=== PATIENT | female | born 1990 | race Caucasian/White ===

== ENCOUNTER 2017-11-11 05:56 | Inpatient (IN) ==
[~2017-11-11 05:56] MED LIST: CITRIC ACID/SODIUM CITRATE 30 ML CUP PO ONE; CefOXitin Inj 2 GM in Sodium Chloride 0.9% 100 ML IV ONE; Famotidine Inj 20 MG in Normal Saline Flush 10 ML IVP ONE; LIDOCAINE HCL 2 % 10 ML JELLY URO-JECT TOPICAL PRN; LIDOCAINE W/ SODIUM BICARB 0.5 ML SYR SUBD PRN; Lactated Ringers 1,000 ML PRIMARY IV ONE; Metoclopramide Inj 10 MG/2 ML VIAL IV ONE; NORMAL SALINE 10 ML SYRINGE FLUSH IVP PRN
[2017-11-11] MEDS ORDERED: Lactated Ringers-OB Dept 1,000 ML ONE (05:59)
[2017-11-11] MEDS ORDERED: Lactated Ringers 1,000 ML PRIMARY IV SCH (06:00)
[2017-11-11] MEDS ORDERED: Oxytocin 20 Units + LR 20 UNIT/1,000 ML BAG IV SCH ×2 (06:00→09:06)
[2017-11-11 06:58] LABS: Hematocrit [HCT] 34.2 % (37.0-47.0); Hemoglobin [HGB] 11.5 g/dL (12.0-16.0); MEAN CORPUSCULAR HEMOGLOBIN 28.2 PG (27-31); MEAN CORPUSCULAR HGB CONC 33.6 g/dL (33-37); MEAN CORPUSCULAR VOLUME 83.8 FL (81-99); MEAN PLATELET VOLUME 11.7 FL (7.4-12.2); RED BLOOD COUNT 4.08 10^6/uL (4.20-5.40)
[2017-11-11] MEDS ORDERED: OXYTOCIN 10 UNIT/1 ML ONE (07:15)
[2017-11-11] MEDS ORDERED: ePHEDrine Inj 50 MG/ML AMP ONE (07:15)
[2017-11-11] MEDS ORDERED: Lactated Ringers 1,000 ML PRIMARY IV ONE (07:21)
--- NOTE | 2017-11-11 08:43 | CRNA.PROCE ---
Central Neuraxis Block Placemt - - Safety Measures: Time Out Taken, Site Verified - - Type of Block: Subarachnoid Reason for Block: Surgical Moniters Used During Block: EKG, SPO2, NIBP Positioning: Sitting Skin Prep Used: Betadine Draped: Yes Introducer User: 23 Gauge Spinal Needle Used: 25 Juliana 80 mm Local Anesthetic - Enter Amount Used in Comment Field: 0.75 % Bupivacaine with Dextrose (ml): Yes (15mg) Anesthesia Time - Other Weight: 92.079 kg Height: 5 ft 3 in Body Mass Index (BMI): 35.9
[2017-11-11] MEDS ORDERED: fentaNYL Inj 100 MCG/2 ML VIAL IVP PRN (08:45)
[2017-11-11] MEDS ORDERED: LIDOCAINE W/ SODIUM BICARB 0.5 ML SYR SUBD PRN (08:45)
[2017-11-11] MEDS ORDERED: HYDROmorphone 2 MG/1 ML IVP PRN (08:45)
[2017-11-11] MEDS ORDERED: NORMAL SALINE 10 ML SYRINGE FLUSH IVP PRN (08:45)
[2017-11-11] MEDS ORDERED: ONDANSETRON 4 MG/2 ML VIAL IVP PRN ×2 (08:45→09:06)
--- NOTE | 2017-11-11 08:45 | CRNA.PROGR ---
Anesthesia Time - - Start date: 11/11/17 End date: 11/11/17 - Procedure/Recovery Time Anesthesia : Time In: 07:24 Anesthesia : Time Out: 08:31 Anesthesia : Total Time: 67 - Total Anesthesia Time Total Anesthesia Time (minutes): 67 - Other Weight: 92.079 kg Height: 5 ft 3 in Body Mass Index (BMI): 35.9 Physical Status: P2 Anesthesia Type: Spinal Block Obstetrics: C/S anesthesia only (Primary Csection)
--- NOTE | 2017-11-11 08:45 | CRNA.PROGR ---
Anesthesia Recovery Phase I - Post Anesthesia Evaluation Patient's Condition on Arrival in Phase I: Stable Pain Level: 0
[2017-11-11] MEDS ORDERED: Famotidine Inj 20 MG in Normal Saline Flush 10 ML IVP PRN (09:06)
[2017-11-11] MEDS ORDERED: diphenhydrAMINE 25 MG CAPSULE PO PRN (09:06)
[2017-11-11] MEDS ORDERED: diphenhydrAMINE 50 MG/1 ML VIAL IV PRN (09:06)
[2017-11-11] MEDS ORDERED: DIPH,PERTUSS,TET(ADACEL) VAC/PF 0.5 ML (Tdap) IM ONE (09:06)
[2017-11-11] MEDS ORDERED: CALCIUM CARBONATE 500 MG (TUMS) CHEWABLE TABLET PO PRN (09:06)
[2017-11-11] MEDS ORDERED: HYDROmorphone 2 MG/1 ML IV PRN (09:06)
[2017-11-11] MEDS ORDERED: Nalbuphine Inj 20 MG/ML Ampule IVP PRN (09:06)
[2017-11-11] MEDS ORDERED: Naloxone Inj 0.01 MG, Sodium Chloride 0.9% vial 1 ML IVP PRN ×2 (09:06)
[2017-11-11] MEDS ORDERED: LANOLIN HPA 40 GM TUBE TOPICAL PRN (09:06)
[2017-11-11] MEDS: KETOROLAC 15 MG/1 ML VIAL IVP SCH ×3 (10:00→23:32)
[2017-11-11] MEDS: oxyCODONE-ACETAMINOPHEN 5-325 TAB PO PRN ×3 (10:30→21:25)
[2017-11-11] MEDS: D5-LR 1,000 ML PRIMARY IV SCH ×2 (14:56→18:58)
[2017-11-11] MEDS: NORMAL SALINE 10 ML SYRINGE FLUSH IVP PRN ×2 (16:16→23:33)
--- NOTE | 2017-11-11 16:59 | OB.OP.NOTE ---
Operative Report - - Surgeon: Riya Castillo MD Prop Setter: Kwan Selby MD, Other (Hilario Henry PA-C and MS3) Anesthesia Type: Regional Anesthesia Provider: Willam Emmanuel CRNA Surgery Date: 11/11/17 Preoperative Diagnosis: Term IUP, contracted pelvis, suspected macrosomic Postoperative Diagnosis: same, delivered Procedure: Primary section Complications: none Estimated Blood Loss (mL): 800 Urine Output (mL): 30 Fluids: 1800 LR Indications: Pt is a 27 yo G1 now P1 at 40 weeks gestation who has a very contracted pelvis. Her baby is also suspected to be greater than 8#8oz per recent u/s data. She has had no signs of labor up to this point. She was offered a primary section and readily accepted this. Findings: viable male infant, cephalic presentation, clear amniotic fluid. Description of Procedure: The patient was taken to the operating room where spinal anesthesia was found to be adequate. She was then prepared and draped in the normal sterile fashion in the dorsal supine position with a leftward tilt. A Pfannenstiel skin incision was then made with the scalpel and carried through to the underlying layer of fascia with the Bovie. The fascia was incised in the midline and the incision extended laterally with the Bovie. The superior aspect of the fascial incision was then grasped with Zen clamps, elevated, and the underlying rectus muscles dissected off bluntly. Attention was then turned to the inferior aspect of this incision which, in a similar fashion, was grasped with Zen clamps and the rectus muscles dissected off both bluntly and with the Bovie. The rectus muscles were then in the midline, and the peritoneum identified, and entered digitally. The peritoneal incision was then extended superiorly and inferiorly with good visualization of the bladder. The Ryder retractor was then inserted and the vesicouterine peritoneum was identified. The lower uterine segment was incised in the transverse fashion with the scalpel. The uterine incision was then extended laterally in a blunt fashion. The infant's head was delivered atraumatically. The nose and mouth were suctioned with the bulb suction and the cord clamped and cut. The was handed off to the awaiting nurse. Cord gases and cord blood were sent for analysis. The placenta was then removed manually; the uterus exteriorized, and cleared of all clots and debris. The uterine incision was repaired with 0 Vicryl in a running, locked fashion. A second layer of the same suture was used to obtain excellent hemostasis. The peritoneal cavity was then copiously irrigated with warm saline. The uterus was returned to the abdomen. The paracolic gutters were copiously irrigated with warm saline and a second look at the uterine incision continued to reveal excellent hemostasis. The peritoneum was closed with 3-0 Vicryl. The fascia was reapproximated with 0 vicryl in a running fashion. The subcutaneous space was irrigated with copiously with warm saline and the closed first with 3-0 Vicryl and then more superficially with Insorb absorbable sutures. The skin was reapproximated with Steri-Strips and a Silverlon dressing applied. Fundal massage was completed with no clots in vaginal vault. The patient tolerated the procedure well. Sponge, lap, and needle counts were correct x2. Ancef was given preoperatively less than one hour prior to incision time. The patient was taken to the recovery room in stable condition.
[2017-11-12] MEDS: KETOROLAC 15 MG/1 ML VIAL IVP SCH ×2 (04:59→11:05)
[2017-11-12] MEDS: NORMAL SALINE 10 ML SYRINGE FLUSH IVP PRN ×2 (05:00→11:05)
[2017-11-12 05:23] LABS: Hematocrit [HCT] 27.1 % (37.0-47.0); Hemoglobin [HGB] 8.9 g/dL (12.0-16.0); MEAN CORPUSCULAR HEMOGLOBIN 28.3 PG (27-31); MEAN CORPUSCULAR HGB CONC 32.8 g/dL (33-37); MEAN PLATELET VOLUME 10.9 FL (7.4-12.2); RED BLOOD COUNT 3.15 10^6/uL (4.20-5.40)
[2017-11-12] MEDS: oxyCODONE-ACETAMINOPHEN 5-325 TAB PO PRN ×4 (07:12→20:47)
[2017-11-12] MEDS: Prenatal Multivitamin Tab 1 TAB TAB PO SCH (09:32)
[2017-11-12] MEDS: Senna/Docusate Tab 1 TAB TAB PO SCH ×2 (09:32→20:47)
[2017-11-12] MEDS ORDERED: SIMETHICONE 80 MG TABLET PO PRN (10:53)
[2017-11-12] MEDS: FERROUS GLUCONATE 324 MG TABLET PO SCH ×2 (15:46→20:47)
[2017-11-12] MEDS: IBUPROFEN 800 MG TABLET PO PRN (17:15)
[2017-11-12] MEDS ORDERED: DIPH,PERTUSS,TET(ADACEL) VAC/PF 0.5 ML (Tdap) IM ONE (19:22)
[2017-11-12 21:03] VITALS: RESP 20
[2017-11-13] MEDS: oxyCODONE-ACETAMINOPHEN 5-325 TAB PO PRN ×2 (02:44→09:17)
[2017-11-13] MEDS: IBUPROFEN 800 MG TABLET PO PRN (04:57)
[2017-11-13] MEDS: Prenatal Multivitamin Tab 1 TAB TAB PO SCH (09:16)
[2017-11-13] MEDS: FERROUS GLUCONATE 324 MG TABLET PO SCH (09:16)
[2017-11-13] MEDS: Senna/Docusate Tab 1 TAB TAB PO SCH (09:17)
[2017-11-13 09:48] VITALS: BP 111/83; TEMP 98; O2SAT 100
--- NOTE | 2017-11-26 08:57 | OB.PROGRES ---
Subjective Post Op Day: 1 Pain Management: PO Valadez Catheter: No Flatus: Yes Diet: Regular Feeding Method: Formula Feeding Ambulating: Yes Concerns / Additional Information: having some gas pains to her right shoulder, somewhat relieved with Gas-X Objective - General General Appearance: POSITIVE: No Acute Distress, Cooperative - Cardiovacular Cardiovascular Exam: POSITIVE: RRR, No Murmur, No Clicks Edema: +1 Pedal Edema Extremities: Negative Cassie's - Bilaterally - Respiratory Respiratory Exam: POSITIVE: Clear to Auscultation - Bilaterally, Breathing Non Labored - Abdomen Abdominal Wound Assessment: Silverlone Dressing Assesstment / Plan (1) S/P primary low transverse Status: Acute Assessment / Plan: -continue ambulation to help with gas pains. -start iron for post-op anemia. -regular diet. -bottle feeding. -rh positive. -rubella immune. -possible d/c home tomorrow.
--- NOTE | 2017-11-26 09:03 | DCSUMMARY ---
Hospitalization Summary Admit Date: 11/11/17 Discharge Date: 11/13/17 Primary Diagnosis:: Primary section for contracted pelvis Secondary Diagnosis:: same, delivered Primary Surgery and Date: Primary section on 11/11/17 Delivery Type: / Postop Complications: none Complications: none Exam - Vitals Vital Signs: Vital Signs Temperature 98.0 F Temperature Source Oral Pulse Rate [Apical] 77 Pulse Rate [Pulse Oximeter] 77 Pulse Rate 85 Respiratory Rate 20 Blood Pressure [Left Arm] 111/83 Blood Pressure 117/93 Pulse Ox 100 Oxygen Flow Rate ra Oxygen Delivery Method Room Air Height 5 ft 3 in Weight 203 lb - General General Appearance: No Acute Distress, Cooperative - Head Head Exam: Normal Inspection, Normocephalic - Neck Neck Exam: Normal Inspection, No Tenderness - Respiratory Respiratory Exam: POSITIVE: Clear to Auscultation - Bilaterally, Breathing Non Labored - Cardiovascular Cardiovascular Exam: POSITIVE: RRR, No Murmur, No Clicks, No Gallops, No Rubs - GI/Abdominal GI/Abdominal Exam: POSITIVE: Normal Bowel Sounds, Non Tender, Non Distended, Soft - Extremities Extremities Exam: POSITIVE: Normal Inspection, Full ROM, Normal Capillary Refill , +2 Edema - Back Back Exam: POSITIVE: Normal Inspection, Full ROM - Neurological Neurological Exam: POSITIVE: Alert, Oriented x 3 - Psychiatric Psychiatric Exam: POSITIVE: Normal Affect, Normal Mood - Integumentary Integumentary Exam: POSITIVE: Normal Color, Warm, Dry Patient Problems - Patient Problem List (1) S/P primary low transverse Status: Acute Code(s): Z98.891 - History of uterine scar from previous surgery Category: Medical
== END 2017-11-13 12:20 | disposition home or self-care (01) | DRG 766 ==
LOC: OBOR 05:56 → OBIP 08:51
PROVIDERS: ADMIT Family Medicine; ATTEND Family Medicine